=== PATIENT | female | born 1945 | race Caucasian/White ===

== ENCOUNTER → 2016-10-09 | Outpatient (CLI) | payer MEDICARE ==
--- NOTE | 2016-10-09 13:07 | XR ---
EXAMINATION TYPE: XR chest 2V DATE OF EXAM: 10/09/2016 11:23 AM COMPARISON: None HISTORY: 70 year-old female presurgical evaluation prior to knee surgery TECHNIQUE: Frontal and lateral views FINDINGS: The cardiomediastinal silhouette, aorta, and pulmonary vasculature are within normal limits. Mild int erstitial prominence has a chronic appearance. Otherwise, lungs and pleural spaces are clear. Dextroc onvex scoliosis centered along the upper thoracic spine. IMPRESSION: Chronic appearing changes without acute cardiopulmonary process.
== END | disposition home or self-care (01) ==
LOC: RADXRMAIN 11:06
PROVIDERS: ATTEND Internal Medicine
DX: Z01.818 Encounter for other preprocedural examination (principal); M41.84 Other forms of scoliosis, thoracic region
CPT/HCPCS: 71020

== ENCOUNTER 2018-12-28 08:05 | Day surgery (SDC) | payer MEDICARE ==
[2018-12-26 08:50] VITALS: BMI 29.2
[~2018-12-28 08:05] MED LIST: LACTATED RINGERS 1,000 ML IV SCH; LIDOCAINE 1% 20 ML VIAL (10MG/ML) FOR IV START INTRADERMA PRN
[2018-12-28 08:46] VITALS: RESP 16; TEMP 97.2
[2018-12-28] MEDS ORDERED: PROPOFOL 10 MG/ML 20 ML VIAL IV ONE (09:11)
--- NOTE | 2018-12-28 09:25 | P.PCN ---
Date of Procedure: 12/28/18 Procedure(s) Performed: BRIEF HISTORY: Patient is a 70-year-old pleasant female, scheduled for an elective colonoscopy as a part of screening for colorectal neoplasia. PROCEDURE PERFORMED: Colonoscopy. PREOPERATIVE DIAGNOSIS: Screening for colon cancer. IV sedation per Anesthesia. PROCEDURE: After informed consent was obtained, the patient, was brought into the endoscopy unit. IV sedation was administered by Anesthesia under continuous monitoring. Digital rectal examination was normal. Initially the Olympus CF-160 flexible video colonoscope was then inserted in the rectum, gradually advanced into the cecum without any difficulty. Careful examination was performed as the scope was gradually being withdrawn. Ileocecal valve and the appendiceal orifice were visualized and appeared normal. Prep was excellent. Mucosa of the cecum, ascending colon, transverse colon, descending colon, sigmoid colon, and rectum appeared normal. Scattered early sigmoid diverticulosis. Retroflexion was performed in the rectum and no lesions were seen. The patient tolerated the procedure well. IMPRESSION: Normal-appearing colon from rectum to cecum with no evidence of colorectal neoplasia . Scattered sigmoid diverticulosis. RECOMMENDATIONS: Findings of this examination were discussed with the patient as well as a family. She was advised to have a repeat screening colonoscopy in 10 years.
[2018-12-28 09:43] VITALS: BP 168/74; PULSE 55
== END 2018-12-28 10:00 | disposition home or self-care (01) ==
LOC: ORWHC2ENDO 08:05
PROVIDERS: ATTEND Internal Medicine Gastroenterology
DX: Z12.11 Encounter for screening for malignant neoplasm of colon (principal); K57.30 Diverticulosis of large intestine without perforation or abscess without bleeding; I10 Essential (primary) hypertension; E78.5 Hyperlipidemia, unspecified; M19.90 Unspecified osteoarthritis, unspecified site; Z79.899 Other long term (current) drug therapy
CPT/HCPCS: J2704; G0121

== ENCOUNTER → 2019-05-24 | Outpatient (CLI) | payer MEDICARE ==
--- NOTE | 2019-05-24 15:33 | CT ---
EXAMINATION TYPE: CT chest wo con DATE OF EXAM: 05/24/2019 COMPARISON: None HISTORY: XRAY SHOWED POSSIBLE MASS CT DLP: 251.[address] of the chest was performed with lung and mediastinal window settings submitted. The la ck of contrast limits evaluation of the vascular, mediastinal and parenchymal structures including th e upper abdomen. LUNGS: The lungs are clear and free of infiltrate. No atelectasis. No pulmonary nodule or mass is de tected. No pleural effusion. No CT evidence of interstitial lung disease. MEDIASTINUM/MAGGIE: Thoracic aorta is of normal caliber with limited evaluation given lack of contrast . The heart is mildly enlarged. No evidence for mediastinal mass. No lymph nodes greater than 1cm . UPPER ABDOMEN: No significant abnormality is seen. OTHER: Thyroid lobes are enlarged with substernal extension and underlying nodularity. Left thyroid l obe measures an estimated 8.3 cm in length while the right thyroid lobe measures approximately 5.8 cm . There is mild tracheal deviation from left to right. IMPRESSION: 1. Thyroid lobes are enlarged with substernal extension and underlying nodularity. Mild tracheal dev iation from left to right. No pulmonary mass is identified.
== END | disposition home or self-care (01) ==
LOC: RADCTMAIN 14:42
PROVIDERS: ATTEND Internal Medicine
DX: J39.8 Other specified diseases of upper respiratory tract (principal); E04.9 Nontoxic goiter, unspecified
CPT/HCPCS: 71250

== ENCOUNTER → 2019-06-09 | Outpatient (CLI) | payer MEDICARE ==
--- NOTE | 2019-06-12 10:35 | MM ---
Reason for exam: screening (asymptomatic). Last mammogram was performed 4 years and 8 months ago. History: Patient is postmenopausal. Took estrogen for 7 years beginning at age 53. Physical Findings: A clinical breast exam by your physician is recommended on an annual basis and results should be correlated with mammographic findings. MG 3D Screening Mammo W/Cad Bilateral CC and MLO view(s) were taken. Prior study comparison: October 22, 2014, bilateral MG screening mammo w CAD. April 04, 2013, bilateral digital screening mammo w/CAD. The breast tissue is heterogeneously dense. This may lower the sensitivity of mammography. Stable benign calcifications. There is no discrete abnormality. No significant changes when compared with prior studies. ASSESSMENT: Benign, BI-RAD 2 RECOMMENDATION: Routine screening mammogram of both breasts in 1 year.
== END | disposition home or self-care (01) ==
LOC: RADMAMWWP 09:04
PROVIDERS: ATTEND Internal Medicine
DX: Z12.31 Encounter for screening mammogram for malignant neoplasm of breast (principal)
CPT/HCPCS: 77063; 77067

== ENCOUNTER → 2021-10-14 | Outpatient (CLI) | payer MEDICARE ==
--- NOTE | 2021-10-14 22:27 | BD ---
EXAMINATION TYPE: Axial Bone Density DATE OF EXAM: 10/14/2021 COMPARISON: DEXA bone scan 2014 CLINICAL HISTORY: 75 years year old Female. ICD-10 CODE: M81.0 Osteoporosis Nuclear Medicine Study in the last 2 weeks: Barium Study in the last week: : Height: 61 inches Weight: 159 pounds FRAX RISK QUESTIONS: Alcohol (3 or more units per day): NO Family History (Parent hip fracture): NO Glucocorticoids (More than 3mos): NO History of Fracture in Adulthood: NO Secondary Osteoporosis: 1. Type 1 Diabetes: NO 2. Hyperthyroidism: NO 3. Menopause before 45: YES 4. Malnutrition: NO 5. Chronic liver disease: NO Rheumatoid Arthritis: NO Current Tobacco Use: NO RISK FACTORS HISTORY OF: Hip Fracture (Right/Left): NO Spine Fracture: NO When: History of Wrist Fracture: NO Surgery to Spine/Hip(right/left)/Wrist (right/left): NO Family History of Osteoporosis: YES GRANDMOTHER AND GRANDFATHER Active: YES Diet low in dairy products/other sources of calcium: YES Postmenopausal woman: YES Take estrogen and/or progesterone medications: NON CURRENTLY How lon YEARS AGO-NON CURRENT Lost more than 2 inches in height since high school: NO Frequent falls: NO Poor Health: NO MEDICATIONS: Prednisone or other steroids: NO Thyroid Medications: NO Osteoporosis Medications: NO Additional Medications: BP MEDS, CHOLESTEROL MEDS, CALCIUM, VIT D Additional History: EXAM MEASUREMENTS: Bone mineral densitometry was performed using the [employer] System. Bone mineral density as measured about the Lumbar spine is: ----- L1-L4(G/cm2): 1.043 T Score Values are as follows: ----- L1: -0.7 ----- L2: -2.3 ----- L3: -1.2 ----- L4: -0.7 ----- L1-L4: -1.1 Bone mineral density has: INCREASED 3.4 % since study of: 2014 Bone mineral density about the R hip (g/cm2): 1.010 Bone mineral density about the L hip (g/cm2): 0.917 T Score values are as follows: -----R Neck: -0.2 -----L Neck: -0.9 -----R Total: 0.2 -----L Total: 0.2 Bone mineral density has: INCREASED1.5 % since study of: 2014 FRAX%s: The graph provided illustrates a 9.4% chance for a major osteoporotic fx and a 1.4% chance fo r the hips probability for fx in 10 years time. IMPRESSION: Osteopenia (T Score between -2.5 and -1). There is slightly increased risk of fracture and the patient may be considered for treatment. Re-Screen 2-5 years. NOTE: T-SCORE=SD OF THE YOUNG ADULT MEAN.
--- NOTE | 2021-10-15 12:23 | MM ---
Reason for exam: screening (asymptomatic). Last mammogram was performed 2 years and 4 months ago. History: Patient is postmenopausal. Took estrogen for 7 years beginning at age 53. Physical Findings: A clinical breast exam by your physician is recommended on an annual basis and results should be correlated with mammographic findings. MG 3D Screening Mammo W/Cad Bilateral CC and MLO view(s) were taken. Prior study comparison: June 09, 2019, bilateral MG 3d screening mammo w/cad. October 22, 2014, bilateral MG screening mammo w CAD. There are scattered fibroglandular densities. No significant changes when compared with prior studies. ASSESSMENT: Benign, BI-RAD 2 RECOMMENDATION: Routine screening mammogram of both breasts in 1 year.
== END | disposition home or self-care (01) ==
LOC: RADMAMWWP 08:58
PROVIDERS: ATTEND Internal Medicine Geriatric Medicine
DX: Z12.31 Encounter for screening mammogram for malignant neoplasm of breast (principal); M81.0 Age-related osteoporosis without current pathological fracture
CPT/HCPCS: 77063; 77067; 77080

== ENCOUNTER → 2024-01-06 | Outpatient (CLI) | payer MEDICARE ==
--- NOTE | 2024-01-06 16:39 | XR ---
EXAMINATION TYPE: XR chest 2V DATE OF EXAM: 01/06/2024 COMPARISON: 10/09/2016 INDICATION: Cough TECHNIQUE: Frontal and lateral views of the chest are obtained. FINDINGS: The heart size is normal. The pulmonary vasculature is normal. The lungs are clear. IMPRESSION: 1. No acute pulmonary process.
== END | disposition home or self-care (01) ==
LOC: RADXRMAIN 14:55
PROVIDERS: ATTEND Internal Medicine Geriatric Medicine
DX: R05.9 Cough, unspecified (principal)
CPT/HCPCS: 71046

== ENCOUNTER → 2024-05-11 | Outpatient (CLI) | payer MEDICARE ==
[2024-05-11 16:01] LABS: Blood Urea Nitrogen 23.3 mg/dL (9.0-27.0); Carbon Dioxide 25.8 mmol/L (21.6-31.8); Chloride 107 mmol/L (96-109); HCT 37.1 % (37.2-46.3); HGB 11.9 g/dL (12.0-15.0); MCH 28.5 pg (27.0-32.0); MCHC 32.1 g/dL (32.0-37.0); MCV 88.8 FL (80.0-97.0); NRBC Per 100 WBC 0 X 10*3/uL (0.00-0.01); Platelet Count 125 X 10*3/uL (140-440); Potassium 4.7 mmol/L (3.5-5.5); RBC 4.18 X 10*6/uL (4.10-5.20); RDW 12.9 % (11.5-14.5); Sodium 142 mmol/L (135-145); WBC 6.58 X 10*3/uL (4.50-10.00)
== END | disposition home or self-care (01) ==
LOC: LABPAT 09:17
PROVIDERS: ATTEND Internal Medicine Interventional Cardiology
DX: Z01.818 Encounter for other preprocedural examination (principal); I25.10 Atherosclerotic heart disease of native coronary artery without angina pectoris
CPT/HCPCS: 80051; 82565; 84520; 85027

== ENCOUNTER 2024-05-15 09:01 | Day surgery (SDC) | payer MEDICARE ==
[~2024-05-15 09:01] MED LIST changes: +ALPRAZolam 0.25 MG TAB PO PRN; +ALPRAZolam 0.5 MG TAB PO PRN; +ASPIRIN 325 MG TAB PO STA; -LACTATED RINGERS 1,000 ML IV SCH; -LIDOCAINE 1% 20 ML VIAL (10MG/ML) FOR IV START INTRADERMA PRN; +NITROGLYCERIN SL TABS 0.4 MG TAB SUBLINGUAL PRN; +SODIUM CHLORIDE 0.9% 1,000 ML in EMPTY BAG 1 BAG IV SCH
[2024-05-15] MEDS ORDERED: ALPRAZolam 0.25 MG TAB PO PRN (09:25)
[2024-05-15] MEDS ORDERED: HEPARIN SODIUM,PORCINE (1 ML) 2,500 UNIT in SODIUM CHLORIDE 0.9% 250 ML IRRIGATION PRN (09:25)
[2024-05-15] MEDS ORDERED: NITROGLYCERIN SL TABS 0.4 MG TAB SUBLINGUAL PRN (09:25)
[2024-05-15] MEDS ORDERED: HEPARIN SODIUM,PORCINE 10,000 UNIT in SODIUM CHLORIDE 0.9% 1,000 ML IRRIGATION PRN (09:25)
[2024-05-15] MEDS ORDERED: ALPRAZolam 0.5 MG TAB PO PRN (09:25)
[2024-05-15] MEDS: SODIUM CHLORIDE 0.9% 1,000 ML in EMPTY BAG 1 BAG IV ONE (09:37)
[2024-05-15] MEDS: IV FLUID CONTINUATION 1,000 ML IV ONE (09:37)
[2024-05-15] MEDS: MIDAZOLAM 2 MG/2 ML VIAL IVP ONE (10:39)
[2024-05-15] MEDS: LIDOCAINE 1% INJ 10MG/ML (20 ML MDV) SQ ONE (10:44)
[2024-05-15] MEDS: VERAPAMIL SYRINGE (5 MG/10 ML) INTRAARTER ONE (10:48)
[2024-05-15] MEDS: TICAGRELOR 90 MG TAB PO ONE (10:50)
[2024-05-15] MEDS: HEPARIN SODIUM 1,000 UN/ML (10ML VL) IVP ONE (10:51)
[2024-05-15] MEDS: NITROGLYCERIN 1000MCG/10ML SYRINGE INTRACORON ONE (11:23)
[2024-05-15] MEDS: IOPAMIDOL-370 100ML BTL INJ ONE ×2 (11:38→12:05)
[2024-05-15] MEDS: ASPIRIN 325 MG TAB PO STA (14:59)
[2024-05-15] MEDS: SODIUM CHLORIDE 0.9% 1,000 ML IV SCH (15:00)
[2024-05-15] MEDS: ATORVASTATIN 80 MG TAB PO STA (15:00)
[2024-05-15] MEDS: METOPROLOL TARTRATE 25 MG TAB PO SCH (20:23)
[2024-05-16 05:41] LABS: Basophils % (A) 0 %; Eosinophils # (A) 0.2 k/uL (0-0.7); Eosinophils % (A) 3 %; HCT 34.5 % (34.0-46.0); HGB 11.5 gm/dL (11.4-16.0); Lymphocytes # (A) 1.2 k/uL (1.0-4.8); Lymphocytes % (A) 20 %; MCH 29.8 pg (25.0-35.0); MCHC 33.4 g/dL (31.0-37.0); MCV 89.4 fL (80.0-100.0); Mean Platelet Volume 8.6; Monocytes # (A) 0.6 k/uL (0-1.0); Monocytes % (A) 9 %; Neutrophils % (A) 66 %; Platelet Count 133 k/uL (150-450); RBC 3.86 m/uL (3.80-5.40); RDW 13.2 % (11.5-15.5); WBC 6.1 k/uL (3.8-10.6)
[2024-05-16 05:55] LABS: African American GFR (CKD) 51 (>60 ml/min/1.73 sqM); Anion Gap 5 mmol/L; Blood Urea Nitrogen 30 mg/dL (7-17); Calcium 8.3 mg/dL (8.4-10.2); Carbon Dioxide 22 mmol/L (22-30); Chloride 111 mmol/L (98-107); Glucose 101 mg/dL (74-99); Non-African American GFR(CKD) 44 (>60 ml/min/1.73 sqM); Potassium 3.9 mmol/L (3.5-5.1); Sodium 138 mmol/L (137-145)
[2024-05-16 07:53] VITALS: BP 160/72; PULSE 78; RESP 16; TEMP 97.9
[2024-05-16] MEDS: METOPROLOL TARTRATE 50 MG TAB PO SCH (08:13)
[2024-05-16] MEDS: TICAGRELOR 90 MG TAB PO SCH (08:13)
[2024-05-16] MEDS: ASPIRIN 81 MG PO SCH (08:13)
[2024-05-16] MEDS: LISINOPRIL-HCTZ 20-25 MG 1 EACH TAB PO SCH (08:13)
[2024-05-16] MEDS: ATORVASTATIN 80 MG TAB PO SCH (08:13)
[2024-05-16] MEDS: MULTIVITAMINS, THERA 1 EACH TAB PO SCH (08:13)
--- NOTE | 2024-05-16 14:52 | CC ---
CARDIAC CATHETERIZATION REPORT PROCEDURES PERFORMED: 1. Percutaneous transluminal coronary angioplasty and stenting of mid left anterior descending with drug-eluting stent. 2. Percutaneous transluminal coronary angioplasty and stenting of posterior descending artery branch of right coronary artery with a drug-eluting stent. 3. Intravascular ultrasound of left anterior descending post procedure. PERFORMED BY: Dr. Fred Lr. ASSISTED BY: Dr. Davis. ANESTHESIA: Moderate conscious sedation time was 80 minutes. The patient tolerated the procedure well. Oxygen saturation, hemodynamics and EKG were monitored closely. CLINICAL INFORMATION: Ms. Marlin Belle is a 78-year-old lady with a known history of CAD with a cardiac cath on May 09 at [facility], which revealed a focal 70% diagonal lesion, and a mid LAD long area of disease with a 95% stenosis and also PDA branch that had a 99% stenosis. She was advised a PCI in a staged manner and brought in for the procedure today. PROCEDURE NOTE: Under local anesthesia and strict aseptic precautions, a 6-Indonesian introducer was placed in the right radial artery using an ultrasound guidance and micropuncture needle. I used a JL3.5 guide catheter for the left coronary artery and a run-through wire and this wire was kept in the distal aspect of the LAD. Predilatation was performed with a 2.5 caliber 15 mm long NC Trek balloon. I then tried to advance this to a 3.0 caliber 28 mm long stent, but I had considerable difficulty because of tortuosity and calcification. I used a korin wire, Whisper wire and with a combination of the korin wire also, we had difficulty. I then used a GuideLiner and with the help of a GuideLiner, I was able to advance a 28 mm long 3.0 caliber Xience stent and deployed this at 14 atmospheres. The stent was then post dilated with a 3.0 caliber NC trek at 16 atmospheres throughout the length of the stent. The proximal end of the stent was also dilated and there was some difficulty advancing the balloon. A GuideLiner was used initially and 2-wire technique was used. With this, we were able to post dilate the entire stented area with a 3.0 caliber NC Trek balloon at 16 atmospheres. We then turned our attention to the PDA branch. The guide catheter was taken out and initially we tried a Amplatz left 0.75 curved catheter, but without success. I then used a KRH catheter with a decent guide support. A Whisper wire was advanced and kept in the PDA and a run-through wire was used as a korin wire. I dilated the lesion that was a subtotal lesion in the PDA with a 2.0 caliber with a Scoreflex balloon of 12 mm length. I then tried to advance the stent. I had difficulty because of calcification in the lesion. With a 2-wire technique, a 2.5 NC Trek balloon was used to then dilate the lesion. With this, the resistance was reduced and we were able to advance a 2.5 caliber Xience stent of 15 mm length. Excellent angiographic result was achieved. There was some spasm distally, which resolved. The patient received 5000 units of heparin. During the procedure, ACT was high, but at the end of the procedure it was 243. Excellent angiographic result was achieved. The sheath was taken out and TR band applied as per protocol. Saturation of the finger was 96%. Excellent angiographic result without complications was achieved in the mid LAD as well as the PDA branch of RCA. The diagonal vessels seemed to have good flow and was not intervened. Results were discussed with the patient and family. She received Brilinta and she will be on aspirin and Brilinta combination for 1 year without interruption. Results were discussed with the patient and her family and she will be discharged tomorrow if she remains stable. MMODL / IJN: [id number] /
--- NOTE | 2024-05-17 01:29 | DS ---
DISCHARGE SUMMARY DIAGNOSES: 1. Unstable angina. 2. Hypertension. 3. Hypercholesterolemia. HOSPITAL COURSE: Ms. Belle was admitted yesterday for a PCI of a complex LAD lesion. PCI was performed from right radial approach of the mid LAD, which is a calcified lesion and also of the PDA branch of RCA with excellent result. Post procedure was uneventful. Right radial site is clean and dry with a good pulse. EKG and the lab tests are good. She has a sinus mechanism with left bundle, unchanged. Laboratory data is good. Renal function is good. She is doing well without symptoms. Vital signs are stable. S1, S2 heard normally. Short systolic murmur audible. Lungs are clear. Abdomen and lower extremity exam unchanged. Plan is to discharge the patient today and she will see my nurse practitioner on May 23. Same medical regimen including dual antiplatelet therapy with Brilinta and aspirin uninterrupted for 1 year. The patient will be discharged today. MMODL / IJN: [id number] /
== END 2024-05-16 11:10 | disposition home or self-care (01) ==
LOC: CATHCVL 09:01 → 6NMEDSUR 12:05 → CATHCVL 05-16 11:10
PROVIDERS: ATTEND Internal Medicine Interventional Cardiology
DX: I25.110 Atherosclerotic heart disease of native coronary artery with unstable angina pectoris (principal); I10 Essential (primary) hypertension; E78.00 Pure hypercholesterolemia, unspecified; Z95.5 Presence of coronary angioplasty implant and graft; Z79.82 Long term (current) use of aspirin; Z79.899 Other long term (current) drug therapy
CPT/HCPCS: 92978; 80048; 84132; 85025; 99152; 99153; C9600; J2250; J2003; J1644; Q9967; J2305